=== PATIENT | female | born 1990 | race Caucasian/White ===

== ENCOUNTER 2018-02-26 15:36 | Inpatient (IN) | payer OTHER ==
[2018-02-26] MEDS: ACETAMINOPHEN 325 MG TAB PO (16:29)
[2018-02-26] MEDS: SODIUM CHLORIDE 0.9% 1L BAG IV* (16:29)
[2018-02-26 16:48] LABS: ADD MAN DIFF? NO
[2018-02-26 16:53] LABS: WHITE BLOOD COUNT 18.8 10^3/ul (4.8-10.8)
[2018-02-26 16:53] LABS: ABNORMAL IP MESSAGE 1; BASOPHILS % 0.2 % (0.0-2.0); HEMATOCRIT 35.8 % (37.0-47.0); HEMOGLOBIN 12.3 g/dl (12.0-16.0); LYMPHOCYTES # 0.8 10^3/ul (0.8-2.9); MEAN CORPUSCULAR HEMOGLOBIN 29.9 pg (29.0-33.0); MEAN CORPUSCULAR HGB CONC 34.4 g/dl (32.0-37.0); MEAN CORPUSCULAR VOLUME 87.1 fl (82.0-101.0); MEAN PLATELET VOLUME 9.7 fl (7.4-10.4); MONOCYTE # 1.8 10^3/ul (0.3-0.9); MONOCYTES % 9.7 % (0.0-11.0); NEUTROPHIL # 16.1 10^3/ul (1.6-7.5); NEUTROPHILS % 85.7 % (39.0-77.0); PLATELET COUNT 258 10^3/UL (140-415); RED BLOOD COUNT 4.11 10^6/ul (4.20-5.40); RED CELL DISTRIBUTION WIDTH 11.8 % (11.5-14.5)
[2018-02-26 16:55] LABS: POSITIVE DIFF @See below
[2018-02-26 17:06] LABS: LACTIC ACID 1.2 mmol/L (0.5-2.0)
[2018-02-26 17:13] LABS: ALANINE AMINOTRANSFERASE 19 IU/L (13-69); ALBUMIN 4.6 g/dl (3.3-4.9); ALBUMIN/GLOBULIN RATIO 1.21; ALKALINE PHOSPHATASE 86 IU/L (42-121); ANION GAP 18 (8-16); ASPARTATE AMINO TRANSFERASE 19 IU/L (15-46); BILIRUBIN,INDIRECT 0.3 mg/dl (0-1.1); BILIRUBIN,TOTAL 0.3 mg/dl (0.2-1.3); BLOOD UREA NITROGEN 5 mg/dl (7-20); CALCIUM 9.1 mg/dl (8.4-10.2); CARBON DIOXIDE 23 mmol/L (21-31); CHLORIDE 98 mmol/L (97-110); CREATININE 0.66 mg/dl (0.44-1.00); GLUCOSE 117 mg/dl (70-220); INR 1.17; POTASSIUM 3.5 mmol/L (3.5-5.1); PROTIME 15.1 Sec (11.9-14.9); PT RATIO 1.2; SODIUM 135 mmol/L (135-144); TOTAL PROTEIN 8.4 g/dl (6.1-8.1)
[2018-02-26 17:14] LABS: PARTIAL THROMBOPLASTIN TIME 29.4 Sec (25.0-35.0)
[2018-02-26 17:25] LABS: TROPONIN-I < 0.012 ng/ml (0.00-0.12)
[2018-02-26 17:31] LABS: ETHANOL < 10.0 mg/dl
[2018-02-26] MEDS: DEXAMETHASONE 10 MG/ML 1 ML INJ IV (18:08)
[2018-02-26 18:41] LABS: URINE BLOOD (Dip) POC 1+ (NEGATIVE); URINE GLUCOSE (Dip) POC Negative (NEGATIVE); URINE KETONES (Dip) POC 1+ (NEGATIVE); URINE LEUKOCYTE EST (Dip) POC 2+ (NEGATIVE); URINE NITRITE (Dip) POC Negative (NEGATIVE); URINE TOTAL PROTEIN POC 1+ (NEGATIVE)
[2018-02-26] MEDS: CEFTRIAXONE 2 GM/50 ML (PMX) 50 ML IVPB (18:54)
[2018-02-26] MEDS: SOD CHLORIDE 0.9% 1,000 ML IV (18:54)
[2018-02-26 19:17] LABS: ADD UMIC YES; UR AMORPHOUS CRYSTAL FEW /HPF (NONE SEEN); UR ASCORBIC ACID NEGATIVE (NEGATIVE); UR BILIRUBIN (Dip) NEGATIVE (NEGATIVE); UR BLOOD (Dip) 1+ mg/dL (NEGATIVE); UR CLARITY CLEAR (CLEAR); UR COLOR STRAW (YELLOW); UR GLUCOSE (Dip) NEGATIVE (NEGATIVE); UR KETONES (Dip) 1+ mg/dL (NEGATIVE); UR LEUKOCYTE ESTERASE (Dip) 3+ Leu/ul (NEGATIVE); UR NITRITE (Dip) NEGATIVE (NEGATIVE); UR RBC 1 /HPF (0-5); UR SPECIFIC GRAVITY (Dip) 1.002 (1.003-1.030); UR SQUAMOUS EPITHELIAL CELL FEW /HPF (FEW); UR TOTAL PROTEIN (Dip) 1+ mg/dl (NEGATIVE); UR UROBILINOGEN (Dip) NEGATIVE (NEGATIVE); UR WBC 16 /HPF (0-5)
[2018-02-26 19:22] LABS: AMPHETAMINE/METHAMPHETAMINE Negative (NEGATIVE); BARBITURATES Negative (NEGATIVE); BENZODIAZEPINES Negative (NEGATIVE); CANNABINOIDS Negative (NEGATIVE); COCAINE Negative (NEGATIVE); OPIATES Negative (NEGATIVE)
[2018-02-26] MEDS: ACYCLOVIR 500 MG in DEXTROSE 5% 100 ML IVPB (19:58)
[2018-02-26] MEDS ORDERED: VANCOMYCIN IV PER PHARMACY XX (20:00)
[2018-02-26] MEDS ORDERED: ACETAMINOPHEN 325 MG TAB PO (20:00)
[2018-02-26] MEDS ORDERED: IBUPROFEN 600 MG TAB PO (20:00)
[2018-02-26] MEDS ORDERED: NACL 0.9% 3 ML SYG IV (20:00)
[2018-02-26] MEDS ORDERED: ONDANSETRON 4 MG INJ IV (20:00)
[2018-02-26] MEDS: VANCOMYCIN 1 GM (PMX) 250 ML IVPB (21:12)
[2018-02-26 22:10] LABS: LACTIC ACID 0.7 mmol/L (0.5-2.0)
[2018-02-26 23:59] LABS: LACTIC ACID 1.1 mmol/L (0.5-2.0)
[2018-02-27] MEDS: LACTATED RINGER'S 1,000 ML IV ×2 (04:00)
[2018-02-27] MEDS: VANCOMYCIN 500MG/NS (PMX) 100 ML IVPB (04:54)
[2018-02-27 08:24] LABS: ADD MAN DIFF? NO
[2018-02-27 08:30] LABS: WHITE BLOOD COUNT 19.5 10^3/ul (4.8-10.8)
[2018-02-27 08:30] LABS: BASOPHILS % 0.1 % (0.0-2.0); HEMATOCRIT 36.3 % (37.0-47.0); HEMOGLOBIN 12.2 g/dl (12.0-16.0); LYMPHOCYTES # 0.8 10^3/ul (0.8-2.9); LYMPHOCYTES % 4.1 % (15.0-51.0); MEAN CORPUSCULAR HGB CONC 33.6 g/dl (32.0-37.0); MEAN CORPUSCULAR VOLUME 89.2 fl (82.0-101.0); MEAN PLATELET VOLUME 10.1 fl (7.4-10.4); MONOCYTE # 0.8 10^3/ul (0.3-0.9); MONOCYTES % 3.9 % (0.0-11.0); NEUTROPHIL # 17.8 10^3/ul (1.6-7.5); NEUTROPHILS % 91.5 % (39.0-77.0); PLATELET COUNT 269 10^3/UL (140-415); RED BLOOD COUNT 4.07 10^6/ul (4.20-5.40)
[2018-02-27 08:44] LABS: ANION GAP 17 (8-16); BLOOD UREA NITROGEN 7 mg/dl (7-20); CALCIUM 8.9 mg/dl (8.4-10.2); CARBON DIOXIDE 22 mmol/L (21-31); CHLORIDE 106 mmol/L (97-110); CREATININE 0.49 mg/dl (0.44-1.00); GLUCOSE 160 mg/dl (70-220); POTASSIUM 3.7 mmol/L (3.5-5.1); SODIUM 141 mmol/L (135-144)
[2018-02-27] MEDS: CEFEPIME 2GM/50 ML (PMX) 50 ML IVPB (08:47)
[2018-02-27] MEDS: VANCOMYCIN 750 MG in DEXTROSE 5% 150 ML IVPB (12:37)
[2018-02-27] MEDS: CEFTRIAXONE 1 GM/50 ML (PMX) 50 ML IVPB (20:56)
[2018-02-28 05:37] LABS: ADD MAN DIFF? NO
[2018-02-28 05:38] LABS: BASOPHILS % 0.2 % (0.0-2.0); HEMOGLOBIN 12.6 g/dl (12.0-16.0); LYMPHOCYTES # 2.1 10^3/ul (0.8-2.9); LYMPHOCYTES % 10.5 % (15.0-51.0); MEAN CORPUSCULAR HEMOGLOBIN 29.9 pg (29.0-33.0); MEAN CORPUSCULAR HGB CONC 34.1 g/dl (32.0-37.0); MEAN CORPUSCULAR VOLUME 87.9 fl (82.0-101.0); MEAN PLATELET VOLUME 9.9 fl (7.4-10.4); MONOCYTE # 1.4 10^3/ul (0.3-0.9); MONOCYTES % 6.9 % (0.0-11.0); NEUTROPHIL # 16.5 10^3/ul (1.6-7.5); NEUTROPHILS % 81.9 % (39.0-77.0); PLATELET COUNT 345 10^3/UL (140-415); RED BLOOD COUNT 4.21 10^6/ul (4.20-5.40); RED CELL DISTRIBUTION WIDTH 12.1 % (11.5-14.5)
[2018-02-28 05:38] LABS: WHITE BLOOD COUNT 20.2 10^3/ul (4.8-10.8)
== END 2018-02-28 13:40 | disposition home or self-care (01) | DRG 872 ==
LOC: MS2 02-27 18:08 → E/R 15:36 → TEL 18:15
DX: A41.9 Sepsis, unspecified organism (principal); N12 Tubulo-interstitial nephritis, not specified as acute or chronic; E86.0 Dehydration; R55 Syncope and collapse; Z53.29 Procedure and treatment not carried out because of patient's decision for other reasons
CPT/HCPCS: 36415; 70450; 71045; 76775; 80048; 80053; 80306; 80307; 81001; 81003; 81025; 83605; 84443; 84484; 85025; 85610; 85730; 87040; 87086; 87400; 93005; 96374; 96375; 99291-25